=== PATIENT | male | born 1955 ===

== ENCOUNTER 2018-03-29 07:55 | Outpatient (CLI) | payer BC ==
--- NOTE | 2018-03-29 09:58 | ULT ---
ABDOMEN ULTRASOUND: HISTORY: Epigastric pain. Acid reflux. FINDINGS: The liver demonstrates increased echogenicity, consistent with fatty infiltration, with areas of fatt y sparing. No focal mass or intrahepatic ductal dilatation is seen. The spleen is normal, measuring 8 cm in length. No gallstones, gallbladder wall thickening, or pericholecystic fluid is seen. The common duct measures 3 mm in diameter. The pancreas is not well visualized due to overlying bowel ga s. The kidneys and visualized portions of the aorta and IVC are unremarkable. No free fluid is seen . IMPRESSION: 1. Fatty liver. 2. No evidence of cholelithiasis. POS: [facility]
== END 2018-03-29 07:56 | disposition home or self-care (01) ==
LOC: BICULT 07:55
PROVIDERS: ATTEND Internal Medicine Gastroenterology
DX: R10.13 Epigastric pain (principal); K76.0 Fatty (change of) liver, not elsewhere classified
CPT/HCPCS: 76700